=== PATIENT | male | born 1955 | race Caucasian/White ===

== ENCOUNTER 2025-03-27 18:25 | Emergency (ER) | payer MEDICARE, BC ==
[~2025-03-27] VITALS: Ht 180.3 cm; Wt 92.7 kg
[2025-03-27] MEDS: OXYMETAZOLINE 0.05% NASAL SPRAY ONE (19:05)
[2025-03-27] MEDS: SILVER NITRATE APPLICATOR (1 = QTY 10) TOP ONE (19:35)
[2025-03-27 20:12] VITALS: BP 123/81; TEMP 98.6; O2SAT 96
== END 2025-03-27 20:15 | disposition home or self-care (01) ==
LOC: M ED 18:25
DX: R04.0 Epistaxis (principal); F17.200 Nicotine dependence, unspecified, uncomplicated